=== PATIENT | female | born 1950 | race Caucasian/White ===

== ENCOUNTER 2016-12-31 08:13 | Emergency (ER) | payer OTHER, MEDICARE ==
--- NOTE | 2016-12-31 08:27 | CPEKG ---
Heart Rate: 83 RR Interval: 723 P-R Interval: 140 QRSD Interval: 80 QT Interval: 368 QTC Interval: 433 P [place]: 31 QRS [place]: 67 T Wave [place]: 65 EKG Severity - NORMAL ECG - EKG Impression: SINUS RHYTHM Electronically Signed By: Samy Walter 31-Dec-2016 13:26:43
[2016-12-31] MEDS ORDERED: LIDOCAINE 2% VISCOUS 15 ML UDCUP PO ONE (08:36)
[2016-12-31] MEDS ORDERED: MAG HYDROX/AL HYDROX/SIMETH 30 ML UDCUP PO ONE (08:36)
--- NOTE | 2016-12-31 08:41 | EDPHY ---
H & P Stated Complaint: RUQ pain Time Seen by Provider: 12/31/16 08:20 HPI/ROS: Chief Complaint: Abdominal pain HPI: 66-year-old woman had the sudden onset of right upper quadrant abdominal pain at 9 o'clock last evening. Described as burning. He has been constant all night long with an intensity of 6/10. She has had some nausea, no vomiting or diarrhea. It is aggravated by lying flat. She is also having some aching her right arm. There are no other aggravating or alleviating factors. She had a similar episode in August 2015 for which she had a CT scan lab work and ultrasound on all of which were negative. She has not had any shortness of breath associated with this. Has not taken any medications for this. Has a family history of a father had a bypass at age 75. No other risk factors for coronary disease or PE. ROS: 10 point Review of Systems is negative except as noted in the HPI. PMH: Hypothyroidism Medications: Synthroid, Cymbalta new line allergies: No known drug allergies Social History: No smoking, occasional alcohol, no recreational drug use Family History: Father at age 92 had a CABG at age 75, mother had ovarian cancer and a CVAs 65 in age 75 from complications from her stroke Physical Exam: Gen: Awake, Alert, No Distress HEENT: Nose: no rhinorrhea Eyes: PERRLA, EOMI Mouth: Moist mucosa Neck: Supple, no JVD Chest: nontender, lungs clear to auscultation Heart: S1, S2 normal, no murmur Abd: Soft, moderate epigastric tenderness with mild to moderate right upper quadrant tenderness, no guarding Back: no CVA tenderness, no midline tenderness Ext: no edema, non-tender Skin: no rash Neuro: CN II-XII intact, Sensation grossly intact, Strength 5/5 in bilateral upper and lower extremities - Personal History Tetanus Vaccine Date: within 10 years - Medical/Surgical History Hx Asthma: No Hx Chronic Respiratory Disease: No Hx Diabetes: No Hx Cardiac Disease: No Hx Renal Disease: No Hx Cirrhosis: No Hx Alcoholism: No Hx HIV/AIDS: No Hx Splenectomy or Spleen Trauma: No Other PMH: Hypothyroidism, detached retina, appendectomy, tubal ligation, genital herpes, depression - Social History Smoking Status: Never smoked Constitutional: Initial Vital Signs O2 Sat (%) 97 12/31/16 08:19 O2 Delivery Mode Room Air O2 (L/minute) 36.7 Allergies/Adverse Reactions: No Known Allergies Allergy (Verified 12/31/16 08:32) Home Medications: Medication Instructions Recorded Levothyroxine 09/15/15 Valacyclovir 09/15/15 Cymbalta 12/31/16 Medical Decision Making - Diagnostics EKG Interpretation: ECG time 8:24 a.m.. Sinus rhythm with a rate of 83, normal axis, normal intervals, no acute ST or T-wave changes. Impression: Normal ECG Imaging Results: Imaging Impressions Abdomen Ultrasound 12/31/16 08:37 Impression: 1. No visible etiology for the patient's pain. 2. Equivocal 1 mm gallbladder polyp, for which no further follow-up is recommended. Findings discussed with Samy Walter MD 12/31/2016 at 10:11. Imaging: Discussed imaging studies w/ call specialist Radiologist ED Course/Re-evaluation: 66-year-old woman with epigastric and right upper quadrant pain which has been constant since last night. She has a normal ECG here. Symptoms are consistent with possible cholelithiasis but likely more gastritis or reflux in nature. Will obtain lab work, will give a GI cocktail problem a will do an ultrasound of her gallbladder to rule out gallstones or acute cholecystitis. Reassess after oral medications. 0930 patient states pain is gone after the GI cocktail. CBC and chemistry are normal. Am awaiting her gallbladder ultrasound. - Data Points Laboratory Results: Laboratory Results 12/31/16 08:47 12/31/16 08:47 12/31/16 12/31/16 08:47 08:47 WBC 9.97 10^3/uL H 10^3/uL (3.80-9.50) RBC 4.47 10^6/uL 10^6/uL (4.18-5.33) Hgb 13.9 g/dL g/dL (12.6-16.3) Hct 40.7 % % (38.0-47.0) MCV 91.1 fL fL (81.5-99.8) MCH 31.1 pg pg (27.9-34.1) MCHC 34.2 g/dL g/dL (32.4-36.7) RDW 12.5 % % (11.5-15.2) Plt Count 289 10^3/uL 10^3/uL (150-400) MPV 9.0 fL fL (8.7-11.7) Neut % (Auto) 84.2 % H % (39.3-74.2) Lymph % (Auto) 8.1 % L % (15.0-45.0) Dolores % (Auto) 5.7 % % (4.5-13.0) Eos % (Auto) 1.3 % % (0.6-7.6) Baso % (Auto) 0.4 % % (0.3-1.7) Nucleat RBC Rel Count 0.0 % % (0.0-0.2) Absolute Neuts (auto) 8.39 10^3/uL H 10^3/uL (1.70-6.50) Absolute Lymphs (auto) 0.81 10^3/uL L 10^3/uL (1.00-3.00) Absolute Monos (auto) 0.57 10^3/uL 10^3/uL (0.30-0.80) Absolute Eos (auto) 0.13 10^3/uL 10^3/uL (0.03-0.40) Absolute Basos (auto) 0.04 10^3/uL 10^3/uL (0.02-0.10) Absolute Nucleated RBC 0.00 10^3/uL 10^3/uL (0-0.01) Immature Gran % 0.3 % % (0.0-1.1) Immature Gran # 0.03 10^3/uL 10^3/uL (0.00-0.10) Sodium 140 mEq/L mEq/L (134-144) Potassium 4.3 mEq/L mEq/L (3.5-5.2) Chloride 104 mEq/L mEq/L (97-110) Carbon Dioxide 25 mEq/l mEq/l (22-31) Anion Gap 11 mEq/L mEq/L (8-16) BUN 20 mg/dL mg/dL (7-23) Creatinine 0.6 mg/dL mg/dL (0.6-1.0) Estimated GFR > 60 Glucose 87 mg/dL mg/dL (70-100) Calcium 8.9 mg/dL mg/dL (8.5-10.4) Total Bilirubin 0.5 mg/dL mg/dL (0.1-1.4) Conjugated Bilirubin 0.2 mg/dL mg/dL (0.0-0.5) Unconjugated Bilirubin 0.3 mg/dL mg/dL (0.0-1.1) AST 29 IU/L IU/L (14-46) ALT 25 IU/L IU/L (9-52) Alkaline Phosphatase 105 IU/L IU/L (38-126) Troponin I < 0.012 ng/mL ng/mL (0-0.034) Total Protein 7.0 g/dL g/dL (6.3-8.2) Albumin 3.7 g/dL g/dL (3.5-5.0) Lipase 132.0 IU/L IU/L (23-300) Medications Given: Discontinued Medications Al Hydroxide/Mg Hydroxide (Maalox Susp) 30 ml PO ONCE ONE Stop: 12/31/16 08:37 Last Admin: 12/31/16 08:47 Dose: 30 ml Lidocaine (Lidocaine 2% Viscous) 15 ml PO ONCE ONE Stop: 12/31/16 08:37 Last Admin: 12/31/16 08:47 Dose: 15 ml Departure - Departure Disposition: Home, Routine, Self-Care Clinical Impression: GERD (gastroesophageal reflux disease) Condition: Good Instructions: Gastroesophageal Reflux Disease (ED) Additional Instructions: If you have similar symptoms in the past please take an [id number] famotidine per package instructions to treat her symptoms. Follow up with your primary care physician in 3-4 days for re-evaluation. Return emergency department for worsening pain, chest pain, shortness of breath , nausea, vomiting, black stools, or any other concerns. Referrals: DENISE KULKARNI [Primary Care Provider] - As per Instructions
[2016-12-31 08:52] LABS: % IMMATURE GRANULYOCYTES 0.3 % (0.0-1.1); ABSOLUTE IMMATURE GRANULOCYTES 0.03 10^3/uL (0.00-0.10); ADD DIFF? NO; ADD MORPH? NO; ADD SCAN? NO; ATYPICAL LYMPHOCYTE FLAG 20 (0-99); FRAGMENT RBC FLAG 0 (0-99); HEMATOCRIT 40.7 % (38.0-47.0); HEMOGLOBIN 13.9 g/dL (12.6-16.3); LEFT SHIFT FLG 0 (0-99); LIPEMIA HEMOLYSIS FLAG 90 (0-99); MEAN CELL HEMOGLOBIN 31.1 pg (27.9-34.1); MEAN CELL HEMOGLOBIN CONCENTR. 34.2 g/dL (32.4-36.7); MEAN CELL VOLUME 91.1 fL (81.5-99.8); PLATELET CLUMPS FLAG 0 (0-99); PLATELET COUNT 289 10^3/uL (150-400); RED BLOOD CELL COUNT 4.47 10^6/uL (4.18-5.33); RED CELL DISTRIBUTION WIDTH 12.5 % (11.5-15.2)
[2016-12-31 09:11] VITALS: RESP 16
[2016-12-31 09:17] LABS: ALANINE AMINOTRANSFERASE 25 IU/L (9-52); ALBUMIN 3.7 g/dL (3.5-5.0); ALKALINE PHOSPHATASE 105 IU/L (38-126); ANION GAP 11 mEq/L (8-16); ASPARTATE AMINOTRANSFERASE 29 IU/L (14-46); BILIRUBIN,TOTAL 0.5 mg/dL (0.1-1.4); BILIRUBIN-CONJUGATED 0.2 mg/dL (0.0-0.5); BILIRUBIN-UNCONJUGATED 0.3 mg/dL (0.0-1.1); CALCIUM 8.9 mg/dL (8.5-10.4); CARBON DIOXIDE 25 mEq/l (22-31); CHLORIDE 104 mEq/L (97-110); CREATININE 0.6 mg/dL (0.6-1.0); GLOMERULAR FILTRATION RATE > 60; GLUCOSE 87 mg/dL (70-100); POTASSIUM 4.3 mEq/L (3.5-5.2); SODIUM 140 mEq/L (134-144)
[2016-12-31 09:37] LABS: TROPONIN I < 0.012 ng/mL (0-0.034)
[2016-12-31 10:42] VITALS: BP 124/79; PULSE 78; O2SAT 94
== END 2016-12-31 10:36 | disposition home or self-care (01) ==
LOC: CED 08:13
DX: K21.9 Gastro-esophageal reflux disease without esophagitis (principal); Z98.51 Tubal ligation status
CPT/HCPCS: 76705-PO; 80048-PO; 80076-PO; 83690-PO; 84484-PO; 85025-PO